=== PATIENT | female | born 1985 | race Two or more races ===

== ENCOUNTER 2017-11-27 01:39 | Emergency (ER) | payer OTHER, SELFPAY ==
[~2017-11-27] VITALS: Ht 165.1 cm; Wt 63.5 kg
[2017-11-27] MEDS ORDERED: NKM (01:53)
[2017-11-27 01:57] VITALS: BP 104/72
--- NOTE | 2017-11-27 02:29 | Emergency Room Report ---
History of Present Illness General Chief Complaint: Medical Clearance Source: Patient Present Illness HPI Is a 32-year-old female with no cerumen past medical history. She is brought in by police for medical clearance. She complaining of left ankle pain. Said that she tripped and twisted her ankle this morning. Since his been hurting to walk. No fever chills. Pain is 7 out of 10. No nausea no vomiting. No other trauma. Allergies: Coded Allergies: No Known Allergies (Unverified , 11/27/17) Patient History Past Medical History: see triage record, old chart reviewed Past Surgical History: other Pertinent Family History: none Social History: Denies: drug use Last Menstrual Period: October Now: No Immunizations: other Reviewed Nursing Documentation: PMH: Agreed; PSxH: Agreed Nursing Documentation-PM Past Medical History: No Stated History Review of Systems Eye: Denies: eye pain, blurred vision ENT: Denies: ear pain, nose congestion, throat swelling Respiratory: Denies: cough, shortness of breath Cardiovascular: Denies: chest pain, palpitations Gastrointestinal: Denies: abdominal pain, diarrhea, nausea, vomiting Musculoskeletal: Reports: joint pain; Denies: back pain Skin: Denies: rash Neurological: Denies: headache, numbness Endocrine: Denies: increased thirst, increased urine Hematologic/Lymphatic: Denies: easy bruising All Other Systems: negative except mentioned in HPI Physical Exam Vital Signs Date Time Temp Pulse Resp B/P (MAP) Pulse Ox O2 Delivery O2 Flow Rate FiO2 11/27/17 01:49 98.1 82 16 104/72 98 Room Air 98.1 Sp02 EP Interpretation: reviewed, normal General Appearance: well appearing, no apparent distress, alert Head: normocephalic, atraumatic Eyes: bilateral eye PERRL, bilateral eye EOMI ENT: hearing grossly normal, normal pharynx Neck: full range of motion, supple, no meningismus Respiratory: chest non-tender, lungs clear, normal breath sounds Cardiovascular #1: regular rate, rhythm, no murmur Gastrointestinal: normal bowel sounds, non tender, no mass, no organomegaly, no bruit, non-distended Musculoskeletal: back normal, gait/station normal, normal range of motion, tender - tender to the left lateral malleolus Neurologic: alert, oriented x3 Psychiatric: mood/affect normal Skin: warm/dry Medical Decision Making Diagnostic Impression: Primary Impression: Left ankle sprain Qualified Codes: S93.402A - Sprain of unspecified ligament of left ankle, initial encounter Additional Impression: Examination, medicolegal reason ER Course patient presents with ankle sprain. She is walking without any difficulty. I see no edema. Ankle is stable. We'll discharge to police. Other X-Ray Diagnostic Results Other X-Ray Diagnostic Results : X-Ray ordered: left ankle x-rays # of Views/Limited Vs Complete: 3 View Indication: Pain EP Interpretation: Yes Interpretation: no dislocation, no soft tissue swelling, no fractures Impression: No acute disease Electronically Signed by: Brandon Bueno MD Last Vital Signs Date Time Temp Pulse Resp B/P (MAP) Pulse Ox O2 Delivery O2 Flow Rate FiO2 11/27/17 01:57 98.1 82 16 104/72 98 Room Air 98.1 Status: improved Disposition: D/C TO LAW ENFORCEMENT IN [facility] Condition: Stable Additional Instructions: Follow-up your doctor in 7 days. Return if worse. BRANDON BUENO M.D. Nov 27, 2017 02:29
[2017-11-27 02:50] VITALS: BP 116/74
--- NOTE | 2017-11-27 03:51 | Diagnostic Imaging Report ---
EXAM: XR Left Ankle Complete, 3 or More Views CLINICAL HISTORY: TRAUMA TECHNIQUE: Frontal, lateral and oblique views of the left ankle. COMPARISON: No relevant prior studies available. FINDINGS: Bones/joints: Unremarkable. No acute fracture. No dislocation. Soft tissues: Mild soft tissue swelling about the lateral malleolus. IMPRESSION: No acute bony abnormality. Soft tissue swelling about the lateral ankle
== END 2017-11-27 02:50 ==
LOC: EMR 02:05
DX: S93.402A Sprain of unspecified ligament of left ankle, initial encounter (principal); X50.1XXA Overexertion from prolonged static or awkward postures, initial encounter; Y92.9 Unspecified place or not applicable; Z02.89 Encounter for other administrative examinations
CPT/HCPCS: 99283